=== PATIENT | male | born 1990 | race Caucasian/White ===

== ENCOUNTER 2017-05-31 09:07 | Emergency (ER) | payer MEDICAID ==
[2017-05-31 09:07] VITALS: BMI 26.4
[2017-05-31 09:33] VITALS: RESP 18
--- NOTE | 2017-05-31 09:58 | ED PDOC ---
Arrival/HPI - General Chief Complaint: Fever Time Seen by Provider: 05/31/17 09:30 Historian: Patient - History of Present Illness Narrative History of Present Illness (Text): 05/31/17 09:55 26yr old male presents today with a 4 day history of sore throat, nasal congestion, cough, bodyaches. no cp or sob. no vomiting. + diarrhea. no sick contacts. pt c/o dry cough. pt states he has been taking advil at home without improvement. no medications taken today. Symptom Onset: Gradual Symptom Course: Worsening Quality: Aching Severity Level: Mild Past Medical History - Provider Review Nursing Documentation Reviewed: Yes - Travel History Have you recently traveled outside [place] w/in the past 3 mons?: No - Tetanus Immunization Tetanus Immunization: Unknown - Psychiatric Hx Depression: No Hx Emotional Abuse: No Hx Physical Abuse: No - Suicidal Assessment Feels Threatened In Home Enviroment: No Family/Social History - Physician Review Nursing Documentation Reviewed: Yes Family/Social History: Unknown Family HX Smoking Status: Never Smoked Hx Alcohol Use: No Hx Substance Use: No Allergies/Home Meds Allergies/Adverse Reactions: Allergies No Known Allergies Allergy (Verified 05/31/17 10:16) Review of Systems - Review of Systems Constitutional: Fatigue, Fevers, Other (bodyaches) Respiratory: Cough. absent: SOB Cardiovascular: absent: Chest Pain, Palpitations Gastrointestinal: Diarrhea. absent: Abdominal Pain, Nausea, Vomiting Genitourinary Male: absent: Dysuria, Frequency, Hematuria Musculoskeletal: absent: Arthralgias, Back Pain, Neck Pain Skin: absent: Rash, Pruritis Neurological: absent: Headache, Dizziness Psychiatric: absent: Anxiety Physical Exam Vital Signs Reviewed: Yes Vital Signs Temp Pulse Resp BP Pulse Ox 05/31/17 12:00 74 18 104/59 L 99 05/31/17 11:17 98.8 F 81 18 102/54 L 99 05/31/17 10:04 101.0 F H 05/31/17 09:29 101.0 F H 94 H 18 119/66 97 Temperature: Febrile Blood Pressure: Normal Pulse: Regular Respiratory Rate: Normal Appearance: Positive for: Well-Appearing, Non-Toxic, Comfortable Pain Distress: None Mental Status: Positive for: Alert and Oriented X 3 - Systems Exam Head: Present: Atraumatic Extroacular Muscles: Present: EOMI Conjunctiva: Present: Normal Ears: Present: Normal, NORMAL TM Mouth: Present: Moist Mucous Membranes, Normal Lips, Normal Tounge. No: Drooling, Trismus Pharnyx: Present: Normal. No: ERYTHEMA, EXUDATE, TONSILS ENLARGED, Peritonsilar Swelling, Uvular Deviation, Muffled/Hoarse Voice Nose (External): Present: Atraumatic Nose (Internal): Present: Clear Mucous Neck: Present: Normal Range of Motion, Trachea Midline. No: Meningeal Signs, Lymphadenopathy Respiratory/Chest: Present: Clear to Auscultation, Good Air Exchange. No: Respiratory Distress, Accessory Muscle Use Cardiovascular: Present: Regular Rate and Rhythm, Normal S1, S2. No: Murmurs Abdomen: Present: Normal Bowel Sounds. No: Tenderness, Distention, Peritoneal Signs, Rebound, Guarding Back: Present: Normal Inspection. No: CVA Tenderness Lower Extremity: No: Edema Neurological: Present: GCS=15 Skin: Present: Warm, Dry, Normal Color. No: Rashes Psychiatric: Present: Alert, Oriented x 3 Medical Decision Making ED Course and Treatment: 05/31/17 09:59 Patient is nontoxic well-appearing in no distress. tachycardic. toradol IM rapid flu; negative cxr; RLL infiltrate pt reassessment; vitals stable; pt feeling better. will appearing. no distress. will d/c home with zithromax. f/u with PMD tomorrow. I advised follow up with primary care physician within the next 2 days. I advised increase fluids and return if symptoms worsen persist or if new symptoms develop. stressed importance of immediate return if symptoms worsen,persist or if new symptoms develop; cp, sob, high fevers, worsening symptoms. Patient verbalizes understanding of discharge instructions and need for immediate followup. all aspects of this case were discussed the attending of record. IMPRESSION; pneumonia Motrin one tablet every 6 hours as needed for pain/fever reduction Zithromax one tablet once daily x4 days Increase fluids Followup with primary care physician the next 2 days Return if symptoms worsen persist or if new symptoms develop; high fevers, increasing pain, shortness of breath, dizziness, weakness or if any other concerning - Lab Interpretations Lab Results: Lab Results 05/31/17 09:23: Influenza Typ A,B (EIA) Negative for flu a/b - RAD Interpretation Radiology Orders: 05/31/17 09:41 CHEST TWO VIEWS (PA/LAT) [RAD] Stat - Medication Orders Current Medication Orders: Discontinued Medications Acetaminophen (Tylenol 325mg Tab) 975 mg PO STAT STA Stop: 05/31/17 09:43 Last Admin: 05/31/17 10:04 Dose: 975 mg MAR Pain/Vitals Document 05/31/17 10:04 MARKELL (Rec: 05/31/17 10:05 MARKELL [id number]) Vitals Temperature (97.6 F-99.6 F) 101.0 F Temperature Source Oral Azithromycin (Zithromax) 500 mg PO STAT STA PRN Reason: Protocol Stop: 05/31/17 11:58 Last Admin: 05/31/17 12:37 Dose: 500 mg Ketorolac Tromethamine (Toradol) 60 mg IM STAT STA Stop: 05/31/17 09:43 Last Admin: 05/31/17 10:04 Dose: 60 mg MAR Pain Assessment Document 05/31/17 10:04 MARKELL (Rec: 05/31/17 10:04 MARKELL [id number]) Pain Reassessment Is this a pain reassessment? Yes Presence of Pain Presence of Pain Yes Pain Scale Used Pain Scale Used Numeric Location Pain Location Body Site Generalized Description Intensity of Pain at present 6 IM Administration Charges Document 05/31/17 10:04 MARKELL (Rec: 05/31/17 10:04 MARKELL [id number]) Injection Site MAR Injection Site Left Deltoid Charges for Administration # of IM Administrations 1 Disposition/Present on Arrival - Present on Arrival Any Indicators Present on Arrival: No History of DVT/PE: No History of Uncontrolled Diabetes: No Urinary Catheter: No History Surgical Site Infection Following: None - Disposition Have Diagnosis and Disposition been Completed?: Yes Diagnosis: Pneumonia Disposition: HOME/ ROUTINE Disposition Time: 12:11 Patient Plan: Discharge Condition: GOOD Discharge Instructions (ExitCare): Pneumonia (ED) Additional Instructions: Motrin one tablet every 6 hours as needed for pain/fever reduction Zithromax one tablet once daily x4 days Increase fluids Followup with primary care physician the next 2 days Return if symptoms worsen persist or if new symptoms develop; high fevers, increasing pain, shortness of breath, dizziness, weakness or if any other concerning symptoms develop. Prescriptions: Azithromycin [Zithromax] 250 mg PO DAILY #4 tab Ibuprofen [Motrin] 600 mg PO Q6H PRN #20 tab PRN Reason: pain/fever reduction Referrals: Vazquez Fenton MD [Family Provider] - Follow up with primary Forms: [facility] ([place]), WORK NOTE
[2017-05-31 11:22] VITALS: TEMP 98.8; O2SAT 99
[2017-05-31 12:30] VITALS: BP 104/59; PULSE 74
--- NOTE | 2017-05-31 12:31 | RAD ---
HISTORY: cough/fever COMPARISON: No prior. TECHNIQUE: Chest PA and lateral FINDINGS: LUNGS: There is an infiltrate in the superior segment of the right lower lobe PLEURA: No significant pleural effusion identified. No pneumothorax apparent. CARDIOVASCULAR: Normal. OSSEOUS STRUCTURES: No significant abnormalities. VISUALIZED UPPER ABDOMEN: Normal. OTHER FINDINGS: None. IMPRESSION: Right lower lobe pneumonia
== END 2017-05-31 12:37 | disposition home or self-care (01) ==
LOC: ED 09:07
DX: J18.9 Pneumonia, unspecified organism (principal)
CPT/HCPCS: 71046; 87804; 96372; 99283; J1885